=== PATIENT | female | born 1965 | race Caucasian/White ===

== ENCOUNTER 2017-01-03 05:32 | Day surgery (SDC) | payer OTHER ==
[~2017-01-03] VITALS: Ht 170.2 cm; Wt 81.8 kg
[~2017-01-03 05:32] MED LIST: AMLODIPINE BES2.5 MG PO; BISOPROLOL-HCT1 EAC2 PO; CRESTOR5 MG PO; FLEXERIL10 MG PO; MACROBID100 MG PO; NAPROSYN500 MG PO; PYRIDIUM100 MG PO; TRAMADOL HCL50 MG PO
[2017-01-03 06:22] LABS: HEMATOCRIT 43.9 % (36.0-46.0); MCH 29.3 PG (29.0-34.0); MCHC 32.8 G/DL (30.0-36.0); MCV 89.4 FL (83-99); MEAN PLAT.VOLUME 10.9 uM^3 (9.5-12.4); PLATELET COUNT 329 K/uL (156-360); RBC DIS.WIDTH-CV 12.2 % (11.8-14.6); RED BLOOD COUNT 4.91 M/uL (3.80-5.20); WHITE BLOOD COUNT 9.1 K/uL (4.1-10.2)
[2017-01-03] MEDS ORDERED: SYNTHROID125 MCG PO (10:19)
[2017-01-03] MEDS ORDERED: NORCO 5/3251 TABLET PO (10:19)
[2017-01-03 14:52] VITALS: BP 122/71
[2017-01-03 16:30] VITALS: BP 125/71
[2017-01-03 19:34] VITALS: BP 123/59
[2017-01-03 23:36] VITALS: BP 128/60
[2017-01-04 03:51] VITALS: BP 122/74
[2017-01-04 08:00] VITALS: BP 136/71
[2017-01-04 12:02] VITALS: BP 112/62
== END 2017-01-04 14:06 | disposition home or self-care (01) ==
LOC: SDC 05:32 → 2SOUTH 09:47 → SDC 09:56 → EDSTATUS 13:52 → 2SOUTH 13:54 → 2EASTP 14:37 → SDC 15:48 → EDSTATUS 15:48 → 2EASTP 01-04 14:06
PROVIDERS: Surgery
PROC: 0GTK0ZZ Resection of Thyroid Gland, Open Approach (ICD-10-PCS; principal; 2017-01-03)
DX: E04.2 Nontoxic multinodular goiter (principal); I10 Essential (primary) hypertension; E78.5 Hyperlipidemia, unspecified; E66.3 Overweight; Z68.28 Body mass index [BMI] 28.0-28.9, adult; Z88.0 Allergy status to penicillin; Z88.1 Allergy status to other antibiotic agents; Z88.5 Allergy status to narcotic agent; Z72.0 Tobacco use; Z80.3 Family history of malignant neoplasm of breast; Z80.2 Family history of malignant neoplasm of other respiratory and intrathoracic organs
CPT/HCPCS: 82310; 85027; 93005; G0378; J0131; J0330; J0690; J1100; J1170; J1885; J2250; J2405; J3010; J7120; S0020